=== PATIENT | female | born 1970 | race African-American/Black ===

== ENCOUNTER 2017-04-24 19:11 | Emergency (ER) | payer OTHER ==
[~2017-04-24] VITALS: Ht 162.6 cm; Wt 69.4 kg
[~2017-04-24 19:11] MED LIST: ADDERALL 10 MG10 MG PO; ASA81BEC PO; BACTRIM DS TAB1 EACH PO; CLINDAMYCIN HC150 MG OR; IBUPROFEN 800800 M1 PO; KEFLEX500 M1 PO; LISINOPRIL-HCT1 EAC2 PO; LOPRESSOR25 PO; NAPROSYN500 MG PO; NORCO 5-325 TA1 EACH PO; POTASSIUM; RITALIN10 MG PO; SYNTHROID175 MCG OR; VITAMIN D1000 UNI1 PO; ZOLOFT 50 MG TA50 M1 OR
[2017-04-24 19:17] VITALS: BP 139/97
[2017-04-24] MEDS ORDERED: PENICILLIN V P500 MG PO (20:27)
== END 2017-04-24 20:32 | disposition home or self-care (01) ==
LOC: ER 19:11
DX: J02.0 Streptococcal pharyngitis (principal); I10 Essential (primary) hypertension; M79.7 Fibromyalgia